=== PATIENT | female | born 1940 | race Caucasian/White ===

== ENCOUNTER 2024-06-13 06:17 | Day surgery (SDC) | payer MEDICARE, OTHER, SELFPAY ==
--- NOTE | 2024-06-08 14:56 | PTCARENOTE ---
Patients 04/2024 ECG abnormal- reviwed by Dr. Hernandez- no additional interventions required
[2024-06-13] VITALS (9 sets, daily range): BP systolic 125–173; BP diastolic 54–81; BMI 27.1
--- NOTE | 2024-06-13 12:06 | W.PN.UPDATE ---
Update Note
Progress Note Update
US reviewed by me shows small amount of sludge in the gb, without GBWT, PCF or ductal dilation
MR reviewed by me without definitive evidence of cholelithiasis, long cystic duct with low insertion is noted, no other notable abnormalities.
[2024-06-13] MEDS: NORMOSOL-R/PLASMALYTE-A 1000 IV (12:25)
[2024-06-13] MEDS: TYLENOL 1000 MG PO (12:26)
[2024-06-13] MEDS: IC GREEN 2.5 MG IV (12:27)
--- NOTE | 2024-06-13 13:53 | OR.RPT ---
Operative Report
Operative Report
Primary Surgeon: Ingrid
Assisting: Adele KIRBY
Pre-op Diagnosis: Biliary pancreatitis
Post-op Diagnosis: Chronic cholecystitis
Procedure Performed: Robot assisted laparoscopic cholecystectomy
Anesthesia Type: GETA
Specimen / Cultures: Gallbladder
Estimated Blood Loss: 10cc
Complications: None immediate
Operative Findings: Softly distended gallbladder with mildly thickened fibrotic wall and dense omental adhesions, large left liver lobe
Date of Surgery:� 06/13/24
Indications: This 84F developed biliary pancreatitis. Magnetic resonance and ultrasound imaging showed a small amount of sludge in the gallbladder. She has had no further symptoms since her pancreatitis episode. Laparoscopic cholecystectomy with
robotic assist was elected.
Description of procedure: The patient was placed on the operating table in the supine position. General anesthesia was induced. A time-out was completed verifying correct patient, procedure, site, positioning, and special equipment prior to
beginning this procedure. An orogastric tube was placed. The abdomen was prepped and draped in the usual sterile fashion. A stab incision was made in left upper quadrant and the Veress needle was inserted. Proper position was confirmed by aspiration
and saline meniscus test. The abdomen was insufflated with carbon dioxide to a pressure of 12mmHg. The patient tolerated insufflation well.
A 8mm trocar was then inserted above the umbilicus through the existing hernia defect. The laparoscope was inserted and the abdomen inspected. No injuries from initial trocar placement or Veress needle insertion were noted. Additional 8mm trocars
were then inserted in the following locations: two in the right lower quadrant and to the left of the umbilicus and just above. The abdomen was inspected and no abnormalities were found. The table was placed in the reverse Trendelenburg position
with the right side up. The dome of the gallbladder was grasped with an atraumatic grasper and retracted over the dome of the liver. Dense omental adhesions were carefully teased down from the lateral fundus with gentle blunt sweeps and judicious
hook cautery. The infundibulum was then grasped with an atraumatic grasper and retracted toward the right lower quadrant. This maneuver exposed Calot�s triangle. The left lobe of the liver was large and slightly obscured the view, but was able to be
gently retracted medially for proper exposure. The peritoneum overlying the gallbladder infundibulum was then incised and the cystic duct and cystic artery identified and circumferentially dissected so that a clear view of the liver was achieved
through a window between the cystic duct an cystic artery. At this time, the only two structures going into the gallbladder were the cystic artery and cystic duct. The common duct was identified with ICG and protected.
The cystic duct was then doubly clipped and divided. The cystic artery was controlled with bipolar and divided. The gallbladder was then dissected from its peritoneal attachments by electrocautery. The posterior plane was mildly fibrotic. The
gallbladder was removed using an endoscopic retrieval bag placed through the umbilical port. The gallbladder was passed off the table as a specimen. The gallbladder fossa was closely inspected. There was no evidence of bleeding from the gallbladder
fossa or cystic artery or leakage of the bile from the cystic duct stump. The umbilical trocar site was closed at the fascial level with 2-0 PDS. Secondary trocars were removed under direct vision and noted to be hemostatic. The abdomen was allowed
to collapse. The skin was closed with subcuticular sutures of 4-0 monocryl and topical skin adhesive. The orogastric tube was removed.
The patient tolerated the procedure well and was taken to the postanesthesia care unit in stable condition.
== END 2024-06-13 15:32 | disposition home or self-care (01) ==
LOC: SDS 06:17
PROVIDERS: ATTENDING PHYSICIAN Surgery; FAMILY PHYSICIAN Internal Medicine
DX: K81.1 Chronic cholecystitis (principal); K85.90 Acute pancreatitis without necrosis or infection, unspecified; K66.0 Peritoneal adhesions (postprocedural) (postinfection); Z88.5 Allergy status to narcotic agent; Z88.1 Allergy status to other antibiotic agents; Z88.0 Allergy status to penicillin
CPT/HCPCS: 47562; 88304

== ENCOUNTER → 2025-03-02 10:42 | Outpatient (REF) | payer MEDICARE, OTHER, SELFPAY ==
[2025-03-02 12:47] LABS: ALT (SGPT) 21 U/L (0-35); AST (SGOT) 34 U/L (14-36); Albumin 4.1 g/dl (3.5-5.0); Alkaline Phosphatase 73 U/L (38-126); Blood Urea Nitrogen 15 mg/dl (7-17); Calcium 9.2 mg/dl (8.4-10.2); Carbon Dioxide 29 mmol/L (22-30); Chloride 104 mmol/L (98-107); Glucose 78 mg/dl (70-99); Potassium 4.4 mmol/L (3.5-5.1); Sodium 139 mmol/L (135-145); Total Protein 6.6 g/dl (6.3-8.2); eGFR > 60.00
[2025-03-02 12:52] LABS: Hematocrit 40.2 % (37.0-47.0); Hemoglobin 12.9 g/dL (12.0-16.0); Mean Corp Hgb Conc. 32.1 g/dL (33.0-37.0); Mean Corpuscular Volume 86.1 fL (81.0-99.0); Platelet Count 150 10^3/uL (130-400); Red Cell Dist. Width 14.6 % (11.5-14.5)
[2025-03-02 13:35] LABS: Nucleated Red Blood Cells % 0 %
== END ==
LOC: REG 10:42
PROVIDERS: ATTENDING PHYSICIAN Nurse Practitioner
DX: R10.32 Left lower quadrant pain (principal); R19.7 Diarrhea, unspecified
CPT/HCPCS: 36415; 80053; 82248; 85025; 87045; 87046; 87324; 87427; 87449

== ENCOUNTER → 2025-03-03 07:36 | Outpatient (REF) | payer MEDICARE, OTHER, SELFPAY | LOC: RAD 07:36 | PROVIDERS: ATTENDING PHYSICIAN Nurse Practitioner; FAMILY PHYSICIAN Internal Medicine | DX: R10.32 Left lower quadrant pain (principal) | CPT/HCPCS: 74177; 82653; 89055; Q9967 ==

== ENCOUNTER → 2025-04-13 08:50 | Outpatient (REF) | payer MEDICARE, OTHER, SELFPAY | LOC: RAD 08:50 | PROVIDERS: ATTENDING PHYSICIAN Internal Medicine Hematology & Oncology; FAMILY PHYSICIAN Internal Medicine | DX: D73.5 Infarction of spleen (principal) | CPT/HCPCS: 93975 ==